=== PATIENT | male | born 1965 | race Caucasian/White ===

== ENCOUNTER 2016-11-08 08:11 | Inpatient (IN) | payer MEDICAID, OTHER ==
[2016-11-08 09:15] LABS: Hematocrit 43 % (42-52); Hemoglobin 14.7 g/dl (14.0-18.0); Mean Corpuscular HGB Conc 34 g/dl (31-36); Mean Corpuscular Hemoglobin 34 pg (27-31); Mean Corpuscular Volume 98 fL (80-94); Mean Platelet Volume 8 um3 (7.4-10.4); Red Cell Distribution Width 14 % (10.5-15)
[2016-11-08 09:31] LABS: ALT 12 U/L (7-52); AST 17 U/L (13-39); Albumin 3.8 g/dL (3.2-5.2); Alkaline Phosphatase 65 U/L (34-104); Anion Gap 2 mmol/L (2-11); CO2 Carbon Dioxide 29 mmol/L (22-32); Chloride 104 mmol/L (101-111); EGFR African American 124.9 (>60); EGFR Non-African American 97.1 (>60); Globulin 3.3 g/dL (2-4); Glucose 89 mg/dL (70-100); Sodium 135 mmol/L (133-145); Total Protein 7.1 g/dL (6.4-8.9)
[2016-11-08 09:48] LABS: Acetaminophen < 15 mcg/mL; Alcohol < 10 mg/dL (<10); Salicylate < 2.50 mg/dL (<30)
[2016-11-08 09:55] LABS: TSH (Thyroid Stimulating Horm) 0.98 mcIU/mL (0.34-5.60)
[2016-11-08 09:56] LABS: Blood Urea Nitrogen 16 mg/dL (6-24)
[2016-11-08 11:01] LABS: Urine Bacteria Absent (Absent); Urine Bilirubin Negative (Negative); Urine Glucose Negative (Negative); Urine Nitrite Negative (Negative)
[2016-11-08 11:15] LABS: Benzodiazepine Urine Screen None Detected (None Detect)
[2016-11-08] MEDS ORDERED: LORazepam TAB(*) 1 MG PO ONE (13:06)
--- NOTE | 2016-11-08 13:52 | ED ---
Aby Sawyer Rebecca, scribed for Denzel Diaz MD on 11/08/16 at 0825 . Psychiatric Complaint - HPI Summary HPI Summary: Pt is a 51 y/o M who presents to ED with depression and SIs. Has been experiencing depression for 1 year, s/p brother's . SIs began yesterday, he states "I don't want to live anymore." When asked, pt reports that nothing triggered his sx. Is not on any medication for depression. Has seen a psychiatrist once. - History Of Current Complaint Chief Complaint: EDMentalHealth Time Seen by Provider: 11/08/16 08:21 Hx Obtained From: Patient Onset/Duration: Lasting Days - SIs started yesterday, Still Present Character: Depressed Aggravating Factor(s): Nothing Alleviating Factor(s): Nothing Has Suicidal: Reports: Thoughts - Allergies/Home Medications Allergies/Adverse Reactions: Allergies Allergy/AdvReac Type Severity Reaction Status Date / Time No Known Allergies Allergy Verified 11/08/16 08:14 PMH/Surg Hx/FS Hx/Imm Hx Endocrine/Hematology History: Denies: Hx Diabetes, Hx Thyroid Disease Cardiovascular History: Reports: Hx Hypertension, Other Cardiovascular Problems/ Disorders - CP DUE TO BLOCKAGE. CARDIAC CATH DONE IN 03/13. AT THE TIME 40-50% BLOCKAGE Respiratory History: Reports: Hx Chronic Obstructive Pulmonary Disease (COPD) - emphazima Denies: Hx Asthma GI History: Denies: Hx Ulcer - Surgical History Surgery Procedure, Year, and Place: RIGHT LUNG NODULE REMOVED, CATHETERIZED CORONARY BLOCKAGE 2009 Infectious Disease History: Denies: Hx Hepatitis, Hx Human Immunodeficiency Virus (HIV), Traveled Outside the [place] in Last 30 Days - Family History Known Family History: Positive: Other - Cancer - Social History Alcohol Use: Occasionally Substance Use Type: Reports: None Hx Tobacco Use: Yes Smoking Status (MU): Heavy Every Day Tobacco Smoker Type: Cigarettes Amount Used/How Often: 1/2 ppd Have You Smoked in the Last Year: Yes Review of Systems Negative: Fever Positive: Depressed, Other - SIs All Other Systems Reviewed And Are Negative: Yes Physical Exam - Summary Physical Exam Summary: VITAL SIGNS: Reviewed. GENERAL: ~Patient is a well-developed and nourished male who is lying comfortable in the stretcher. ~Patient is not in any acute respiratory distress. HEAD AND FACE: No signs of trauma. ~No ecchymosis, hematomas or skull depressions. No sinus tenderness. EYES: PERRLA, EOMI x 2, No injected conjunctiva, no nystagmus. EARS: Hearing grossly intact. Ear canals and tympanic membranes are within normal limits. MOUTH: Oropharynx within normal limits. NECK: Supple, trachea is midline, no adenopathy, no JVD, no carotid bruit, no c- spine tenderness, neck with full ROM. CHEST: Symmetric, no tenderness at palpation LUNGS: Clear to auscultation bilaterally. No wheezing or crackles. CVS: Regular rate and rhythm, S1 and S2 present, no murmurs or gallops appreciated. ABDOMEN: Soft, non-tender. No signs of distention. No rebound no guarding, and no masses palpated. Bowel sounds are normal. EXTREMITIES: FROM in all major joints, no edema, no cyanosis or clubbing. NEURO: Alert and oriented x 3. No acute neurological deficits. Speech is normal and follows commands. SKIN: Dry and warm PSYCH: Depressed, quiet, and reports suicidal thoughts without a plan. No homicidal thoughts or plan. No signs of psychosis or pressure speech. No tangential speech. Triage Information Reviewed: Yes Vital Signs On Initial Exam: Initial Vitals Temp Pulse Resp BP Pulse Ox 97.3 F 71 16 118/83 99 11/08/16 08:14 11/08/16 08:14 11/08/16 08:14 11/08/16 08:14 11/08/16 08:14 Vital Signs Reviewed: Yes Diagnostics - Vital Signs Vital Signs Temp Pulse Resp BP Pulse Ox 11/08/16 08:14 97.3 F 71 16 118/83 99 - Laboratory Lab Results: Lab Results 11/08/16 11/08/16 11/08/16 Range/Units 09:00 09:00 10:39 WBC 9.0 (3.5-10.8) 10^3/ul RBC 4.40 (4.0-5.4) 10^6/ul Hgb 14.7 (14.0-18.0) g/dl Hct 43 (42-52) % MCV 98 H (80-94) fL MCH 34 H (27-31) pg MCHC 34 (31-36) g/dl RDW 14 (10.5-15) % Plt Count 214 (150-450) 10^3/ul MPV 8 (7.4-10.4) um3 Neut % (Auto) 78.5 (38-83) % Lymph % (Auto) 15.3 L (25-47) % Wilcox % (Auto) 4.5 (1-9) % Eos % (Auto) 0.5 (0-6) % Baso % (Auto) 1.2 (0-2) % Absolute Neuts (auto) 7.1 (1.5-7.7) 10^3/ul Absolute Lymphs (auto) 1.4 (1.0-4.8) 10^3/ul Absolute Monos (auto) 0.4 (0-0.8) 10^3/ul Absolute Eos (auto) 0 (0-0.6) 10^3/ul Absolute Basos (auto) 0.1 (0-0.2) 10^3/ul Absolute Nucleated RBC 0 10^3/ul Nucleated RBC % 0 Sodium 135 (133-145) mmol/L Potassium 4.0 (3.5-5.0) mmol/L Chloride 104 (101-111) mmol/L Carbon Dioxide 29 (22-32) mmol/L Anion Gap 2 (2-11) mmol/L BUN 16 (6-24) mg/dL Creatinine 0.84 (0.67-1.17) mg/dL Est GFR ( Amer) 124.9 (>60) Est GFR (Non-Af Amer) 97.1 (>60) BUN/Creatinine Ratio 19.0 (8-20) Glucose 89 (70-100) mg/dL Calcium 9.0 (8.6-10.3) mg/dL Total Bilirubin 0.50 (0.2-1.0) mg/dL AST 17 (13-39) U/L ALT 12 (7-52) U/L Alkaline Phosphatase 65 (34-104) U/L Total Protein 7.1 (6.4-8.9) g/dL Albumin 3.8 (3.2-5.2) g/dL Globulin 3.3 (2-4) g/dL Albumin/Globulin Ratio 1.2 (1-3) TSH 0.98 (0.34-5.60) mcIU/mL Urine Color Yellow Urine Appearance Clear Urine pH 5.0 (5-9) Ur Specific [place] 1.009 L (1.010-1.030) Urine Protein Negative (Negative) Urine Ketones Negative (Negative) Urine Blood Negative (Negative) Urine Nitrate Negative (Negative) Urine Bilirubin Negative (Negative) Urine Urobilinogen Negative (Negative) Ur Leukocyte Esterase 2+ H (Negative) Urine WBC (Auto) 2+(11-20/hpf) H (Absent) Urine RBC (Auto) Trace(0-2/hpf) (Absent) Ur Squamous Epith Cells Present H (Absent) Urine Bacteria Absent (Absent) Urine Glucose Negative (Negative) Salicylates < 2.50 (<30) mg/dL Urine Opiates Screen (None Detect) Acetaminophen < 15 mcg/mL Ur Barbiturates Screen (None Detect) Ur Phencyclidine Scrn (None Detect) Ur Amphetamines Screen (None Detect) U Benzodiazepines Scrn (None Detect) Urine Cocaine Screen (None Detect) U Cannabinoids Screen (None Detect) Serum Alcohol < 10 (<10) mg/dL 11/08/16 Range/Units 10:39 WBC (3.5-10.8) 10^3/ul RBC (4.0-5.4) 10^6/ul Hgb (14.0-18.0) g/dl Hct (42-52) % MCV (80-94) fL MCH (27-31) pg MCHC (31-36) g/dl RDW (10.5-15) % Plt Count (150-450) 10^3/ul MPV (7.4-10.4) um3 Neut % (Auto) (38-83) % Lymph % (Auto) (25-47) % Wilcox % (Auto) (1-9) % Eos % (Auto) (0-6) % Baso % (Auto) (0-2) % Absolute Neuts (auto) (1.5-7.7) 10^3/ul Absolute Lymphs (auto) (1.0-4.8) 10^3/ul Absolute Monos (auto) (0-0.8) 10^3/ul Absolute Eos (auto) (0-0.6) 10^3/ul Absolute Basos (auto) (0-0.2) 10^3/ul Absolute Nucleated RBC 10^3/ul Nucleated RBC % Sodium (133-145) mmol/L Potassium (3.5-5.0) mmol/L Chloride (101-111) mmol/L Carbon Dioxide (22-32) mmol/L Anion Gap (2-11) mmol/L BUN (6-24) mg/dL Creatinine (0.67-1.17) mg/dL Est GFR ( Amer) (>60) Est GFR (Non-Af Amer) (>60) BUN/Creatinine Ratio (8-20) Glucose (70-100) mg/dL Calcium (8.6-10.3) mg/dL Total Bilirubin (0.2-1.0) mg/dL AST (13-39) U/L ALT (7-52) U/L Alkaline Phosphatase (34-104) U/L Total Protein (6.4-8.9) g/dL Albumin (3.2-5.2) g/dL Globulin (2-4) g/dL Albumin/Globulin Ratio (1-3) TSH (0.34-5.60) mcIU/mL Urine Color Urine Appearance Urine pH (5-9) Ur Specific [place] (1.010-1.030) Urine Protein (Negative) Urine Ketones (Negative) Urine Blood (Negative) Urine Nitrate (Negative) Urine Bilirubin (Negative) Urine Urobilinogen (Negative) Ur Leukocyte Esterase (Negative) Urine WBC (Auto) (Absent) Urine RBC (Auto) (Absent) Ur Squamous Epith Cells (Absent) Urine Bacteria (Absent) Urine Glucose (Negative) Salicylates (<30) mg/dL Urine Opiates Screen None detected (None Detect) Acetaminophen mcg/mL Ur Barbiturates Screen None detected (None Detect) Ur Phencyclidine Scrn None detected (None Detect) Ur Amphetamines Screen None detected (None Detect) U Benzodiazepines Scrn None detected (None Detect) Urine Cocaine Screen None detected (None Detect) U Cannabinoids Screen None detected (None Detect) Serum Alcohol (<10) mg/dL Result Diagrams: 11/08/16 09:00 11/08/16 09:00 Lab Statement: Any lab studies that have been ordered have been reviewed, and results considered in the medical decision making process. Course/Dx - Course Assessment/Plan: Pt is a 51 y/o M who presents to ED with depression and SIs. Has been experiencing depression for 1 year, s/p brother's . SIs began yesterday, he states "I don't want to live anymore." When asked, pt reports that nothing triggered his sx. Is not on any medication for depression. Has seen a psychiatrist once. Blood work without any significant abnormalities. The pt was medically cleared for [facility]. He was awiating [facility]. Dr. Marinelli consulted for the patient. He diagnosed the pt with depressive disorder and decided to admit him to his services. - Differential Dx/Clinical Impression Differential Diagnosis/HQI/PQRI: Positive: Anxiety, Depression, Suicidal Ideation, Suicidal Gesture Provider Diagnosis: Depressive disorder Discharge - Discharge Plan Condition: Stable Disposition: ADMITTED TO [facility] Referrals: Charlie Flores MD [Primary Care Provider] - The documentation as recorded by the Ayb smart Rebecca accurately reflects the service I personally performed and the decisions made by me, Denzel Diaz MD.
[2016-11-08] MEDS ORDERED: Mouth Piece, Nicotine* 1 EACH CARTRIDGE INH SCH (16:50)
[2016-11-08] MEDS ORDERED: Nicotine GUM* 2 MG PO PRN (16:50)
[2016-11-08] MEDS ORDERED: Al Hydrox/Mg Hydrox/Simet LIQ* 30 ML UDC PO PRN (16:50)
[2016-11-08] MEDS ORDERED: Acetaminophen TAB* 325 MG PO PRN (16:50)
[2016-11-08] MEDS ORDERED: Nicotine Inhaler* 10 MG AMP INH PRN (16:50)
[2016-11-09] MEDS: Vitamin THERAPEUTIC TAB PO SCH (09:29)
--- NOTE | 2016-11-09 15:35 | HP ---
H&P (Free Text) History and Physical: HPI: ---- Patient is a 51yo male with PPHx significant for MDD who self presented to [facility], at the behest of his [facility] at [facility], after reporting worsening depressive symptoms and SI in the context of recently ending his relationship with his fiance and now being homeless. Patient also reported his brother in 01/2016by suicide. In the ED, patient stated, "I don't want to live anymore". With further questions of psychosocial stressors and triggers for his decline, patient was evasive with the ED provider. He reported he presenting to the ED only to be referred to an outpt therapist. He reported knowing referral from a hospital would have him in to be seen in weeks instead of months. Patient reports he did not desire admission and has submitted paperwork requesting discharge. On interview in the unit, patient continues to be evasive and patient minimizes his symptoms. After multiple questions on life stressors, patient finally admitted he and his ex had planned to be this Tuesday11/12/16. Patient reports he feels he is being used for his finances in the relationship. He had lived with his ex, but reports paying most of the expenses in the household. Patient reports his ex has untreated MH issues. He reports realizing his relationship was unhealthy as his became upset when patient took her car to work instead of riding his motorcycle in due to inclimate weather. He feels he was supportive of his ex, but received no support in return. Patient became tearful talking about his ex. Patient was also noted to have more depressed affect when discussing the of his brother in 01/2016 y suicide. Patient reports he had been living with him prior to his suicide. He reported finding his body. Patient is now homeless, but reports to this provider he "has people" in [place] who will take him in. Patient denies alcohol or illicit substances played a role in his decompensation / SI. He reports he has no plans to hurt himself. Patient reports he goes to work at [employer] daily and has had no reprimands at work. Patient is on no meds currently and declines recommendation to start an antidepressant. Patient denies hx of physical, emotional, or sexual abuse. Patient reports no symptoms of psychosis, nor were any elicited on this interview. Patient reports no current SI/HI or AH/VH. Past Psych Hx: Inpt - Patient reports hx of 2 prior admissions for dx- depression, last >20 years ago. One of 2 admission patient reports was at [facility]. Outpt - None currently, [facility]. Last seen in 04/2016 due to inability to pay. Psychotropic med hx - Patient can not recall the names of antidepressants he's taken in the past. Suicide attempt Hx / SIB Hx: -Patient reports hx of 1 suicide attempt. He reports in 2009 by means of OD, triggered by a breakup with a GF and her taking his child. -[facility] records indicate a 10/2010 suicide attempt by OD on HTN meds. Trauma Hx: Patient denies hx of physical, emotional, or sexual abuse. Substance Hx: -Patient denies abuse of alcohol and reports rare use of alcohol. -Patient denies use of illicit substances. Medical Hx: -CAD, s/p Cardiac catherization in 2009 -Hx of HTN Allergies: --------- NKDA Family Hx: Patient reports family hx of depression. Patient reports his brother committed suicide. Social Hx: --------- -Patient born and raised in [place], [place] -Raised by mom and dad -Patient is the youngest of 9 children -Patient reports being close with only one sibling, his brother who committed suicide in 01/2016. -Patient describes his childhood as "good" -Patient reports moving around multiple times as a child due to his father's work -Patient reports HLOE: 9th grade as he was "sick of moving" -Patient reports he has 6 kids -Patient reports he is paying child support on 4 children still to 3 different mothers -Patient is employed, at [employer]. -Close with only one of his children, Joshua 30yo -Patient has 4 grandchildren -Patient recently homeless after breaking up with his fiance recently Home Meds: Home Medications Medication Instructions Recorded Confirmed Type NK [No Home Medications Reported] 04/24/13 11/08/16 History Vitals: ------ 11/08/16 11/08/16 11/08/16 08:14 08:19 12:09 Temperature 97.3 F 97.3 F 97.6 F Pulse Rate 71 71 53 Respiratory 16 16 16 Rate Blood Pressure 118/83 118/83 122/87 (mmHg) O2 Sat by Pulse 99 98 98 Oximetry 11/08/16 11/09/16 11/09/16 15:35 07:43 10:13 Temperature 98.6 F 98.5 F Pulse Rate 65 66 Respiratory 16 16 16 Rate Blood Pressure 110/80 113/71 (mmHg) O2 Sat by Pulse 94 98 Oximetry LABS: ----- Laboratory Tests 11/08/16 11/08/16 11/08/16 09:00 09:00 10:39 WBC 9.0 RBC 4.40 Hgb 14.7 Hct 43 MCV 98 H MCH 34 H MCHC 34 RDW 14 Plt Count 214 MPV 8 Neut % (Auto) 78.5 Lymph % (Auto) 15.3 L [place] % (Auto) 4.5 Eos % (Auto) 0.5 Baso % (Auto) 1.2 Absolute Neuts (auto) 7.1 Absolute Lymphs (auto) 1.4 Absolute Monos (auto) 0.4 Absolute Eos (auto) 0 Absolute Basos (auto) 0.1 Absolute Nucleated RBC 0 Nucleated RBC % 0 Sodium 135 Potassium 4.0 Chloride 104 Carbon Dioxide 29 Anion Gap 2 BUN 16 Creatinine 0.84 Est GFR ( Amer) 124.9 Est GFR (Non-Af Amer) 97.1 BUN/Creatinine Ratio 19.0 Glucose 89 Calcium 9.0 Total Bilirubin 0.50 AST 17 ALT 12 Alkaline Phosphatase 65 Total Protein 7.1 Albumin 3.8 Globulin 3.3 Albumin/Globulin Ratio 1.2 TSH 0.98 Urine Color Yellow Urine Appearance Clear Urine pH 5.0 Ur Specific [place] 1.009 L Urine Protein Negative Urine Ketones Negative Urine Blood Negative Urine Nitrate Negative Urine Bilirubin Negative Urine Urobilinogen Negative Ur Leukocyte Esterase 2+ H Urine WBC (Auto) 2+(11-20/hpf) H Urine RBC (Auto) Trace(0-2/hpf) Ur Squamous Epith Cells Present H Urine Bacteria Absent Urine Glucose Negative Salicylates < 2.50 Urine Opiates Screen Acetaminophen < 15 Ur Barbiturates Screen Ur Phencyclidine Scrn Ur Amphetamines Screen U Benzodiazepines Scrn Urine Cocaine Screen U Cannabinoids Screen Serum Alcohol < 10 11/08/16 10:39 WBC RBC Hgb Hct MCV MCH MCHC RDW Plt Count MPV Neut % (Auto) Lymph % (Auto) [place] % (Auto) Eos % (Auto) Baso % (Auto) Absolute Neuts (auto) Absolute Lymphs (auto) Absolute Monos (auto) Absolute Eos (auto) Absolute Basos (auto) Absolute Nucleated RBC Nucleated RBC % Sodium Potassium Chloride Carbon Dioxide Anion Gap BUN Creatinine Est GFR ( Amer) Est GFR (Non-Af Amer) BUN/Creatinine Ratio Glucose Calcium Total Bilirubin AST ALT Alkaline Phosphatase Total Protein Albumin Globulin Albumin/Globulin Ratio TSH Urine Color Urine Appearance Urine pH Ur Specific [place] Urine Protein Urine Ketones Urine Blood Urine Nitrate Urine Bilirubin Urine Urobilinogen Ur Leukocyte Esterase Urine WBC (Auto) Urine RBC (Auto) Ur Squamous Epith Cells Urine Bacteria Urine Glucose Salicylates Urine Opiates Screen None detected Acetaminophen Ur Barbiturates Screen None detected Ur Phencyclidine Scrn None detected Ur Amphetamines Screen None detected U Benzodiazepines Scrn None detected Urine Cocaine Screen None detected U Cannabinoids Screen None detected Serum Alcohol PHYSICAL EXAM: GEN - in NAD, looks stated age HEENT - NC/AT, EOEMI, no lesions or discharge noted, conjunctivae clear NECK - supple, no JVD, no LAD, CARDIAC - S1/S2, no discernable murmurs ABD - (+) BS x 4 quad, non-tender EXT - no edema, no lesions MUSCULOSKEL - 5/5 muscle strength in all extremities SKIN - intact, no lesions NEURO - CN 2-12, steady gait MSE: ----- Appearance -thin build male, fair hygeine, in NAD Behavior - calm, cooperative Speech - RRR, prosody wnl Eye Contact - good Mood - "depressed" Affect - depressed, tearful at times TP - linear and GD TC - focused on relational issues with ex-fiance Perception - no signs of psychosis noted or reported Orientation - A&Ox3 Cognition - intact Insight - poor Judgement - poor SI / HI - present on admission, currently denies both ASSESSMENT: 1. MDD, R, S w/o PFs PLAN: ------ 1. Continue admission to [facility] for safety and symptom mx. 2. Patient declines recommendation to start an antidepressant. 3. Continue compiling collateral information from family, PCP, and most recent [facility] providers [facility]. 4. Patient to participate in milieu activities and groups.
[2016-11-10] MEDS: Vitamin THERAPEUTIC TAB PO SCH (08:48)
--- NOTE | 2016-11-10 11:54 | PN ---
MHU: Group Therapy Note - Service Type Service Type: [id number] Group Psychotherapy - Cognitive Behavioral Group Therapy ( CBT):Patient was attentive and participatory in CBT programming this morning, and remained in good behavioral control. Patient expressed positive insights regarding relevant treatment interventions and goals.
--- NOTE | 2016-11-10 17:07 | PN ---
Subjective - Subjective Service Type: [id number] Hosp care 15 min low complexity Subjective: Patient being visited by his fijackson and her daughter on my approach. Patient's affect noticeably brighter and patient joked/smiled multiple times during the interview. Patient reports he did not call his fiance. Fijackson reports she'd come to campus to give blood and noticed patient's motorcycle. Fiance called the unit and later came to the unit, finally given approval by patient to be brought back to visit. Patient and fiance recognize communication issues in their relationship. Patient reports his nature is to hash out any dispute right then and if his fiance will not he interprets this as not caring about the relationship. Fijackson reported she needs time to cool down and can not discuss issues in the heat of the moment as they come up. Both appreciated the other's perspective and were amenable to developing a compromise regarding setting up a time to hash out issues that fit both of them. Patient denied SI/HI and AH/VH. He reports sleep and appetite are wnl. Objective - Appearance Appearance: Thin Framed Dysmorphic Features: No Hygiene: Normal Grooming: Fairly Well Kept - Behavior Psychomotor Activities: Normal Exhibits Abnormal Movement: No - Attitude and Relatedness Attitude and Relatedness: Cooperative Eye Contact: Good - Speech Quality: Unpressured Latencies: Normal Quantity: Appropriate - Mood Patient's Decription of Mood: "Good" - Affect Observed Affect: Euphoric Affect Consistent with: Euthymia - Thought Process Patient's Thought Process: Coherent Thought Content: No Passive Wish, No Suicidal Planning, No Homicidal Ideation, No Paranoid Ideation - Sensorium Experiencing Hallucinations: No, Sensorium is Clear Type of Hallucinations: Visual: No, Auditory: No, Command: No - Level of Consciousness Level of Consciousness: Alert Orientation: Yes Intact, Yes Orientated to Time, Yes Orientated to Place, Yes Orientated to Person - Impulse Control Impulse Control: Intact - Insight and Judgement Insight and Judgement: Fair - Group Participation Particating in Group Activities: Yes - Medication Management Medication Management Adherence: Yes Assessment - Assessment Merits Inpatient Hospitalization: For Immediate Safety, For Stabilization Inpatient DSM-IV Dx: 1. MDD, R, S w/o PFs Plan - Plan Treatment Plan: Name: RODOLFO VALENZUELA SR Birthdate: 1965 [id number] 1. Continue admission to [facility] for safety and symptom mx. 2. Patient declines recommendation to start an antidepressant. 3. Collateral information obtained from Janna, who patient lives with. 4. Patient to participate in milieu activities and groups. Medications: Current Medications Acetaminophen (Tylenol Tab*) 650 mg PO Q4H PRN PRN Reason: PAIN or TEMP > 101 F Al Hydrox/Mg Hydrox/Simethicone (Maalox Plus*) 30 ml PO Q4H PRN PRN Reason: INDIGESTION Device (Nicotine Mouth Piece*) 1 each INH .[facility] Multivitamins (Theragran Tab*) 1 tab PO DAILY [facility] Last Admin: 11/10/16 08:48 Dose: Not Given Nicotine (Nicotine Inhaler*) 10 mg INH Q2H PRN PRN Reason: CRAVING Nicotine Polacrilex (Nicotine Gum*) 2 mg PO Q2H PRN PRN Reason: CRAVING - Discharge Plan Discharge Plan: Outpatient Follow Up
[2016-11-11] MEDS: Vitamin THERAPEUTIC TAB PO SCH (09:19)
--- NOTE | 2016-11-11 13:15 | PN ---
MHU: Group Therapy Note - Service Type Service Type: [id number] Group Psychotherapy - Cognitive Behavioral Group Therapy ( CBT):Patient was attentive and participatory in CBT programming this morning, and remained in good behavioral control. Patient expressed positive insights regarding relevant treatment interventions and goals.
--- NOTE | 2016-11-11 14:56 | PN ---
Subjective - Subjective Service Type: 78838 Hosp care 15 min low complexity Subjective: Patient continues to be full in affect, visible in the milieu, social, and participating in groups and milieu activities. Patient reported early in the day a desire to discharge Tuesday am as he wanted to surprise his fiance with getting in the park and wanted to have time to set it up. On interview, patient continued to have full affect but reported he'd spoken by phone with his fiance and they again argued over financial issues. Patient reports he feels they have a lot of issues and he now reports no desire to discharge to his fiances house as was the plan this morning. He reports he will go to his friend Radha's#[phone] home and has given this provider permission to call her for collateral. Patient reports his mood as "okay". He denies SI/HI and denies AH/VH. He again declines recommendation to initiate an antidepressant during this time of disequilibrium(break-up/homelessness/financial strain). Objective - Appearance Appearance: Thin Framed Dysmorphic Features: No Hygiene: Normal Grooming: Fairly Well Kept - Behavior Psychomotor Activities: Normal Exhibits Abnormal Movement: No - Attitude and Relatedness Attitude and Relatedness: Cooperative Eye Contact: Fair - Speech Quality: Unpressured Latencies: Normal Quantity: Appropriate - Mood Patient's Decription of Mood: "Okay" - Affect Observed Affect: Fair Affect Consistent with: Euthymia - Thought Process Patient's Thought Process: Coherent Thought Content: No Passive Wish, No Suicidal Planning, No Homicidal Ideation, No Paranoid Ideation - Sensorium Experiencing Hallucinations: No, Sensorium is Clear Type of Hallucinations: Visual: No, Auditory: No, Command: No - Level of Consciousness Level of Consciousness: Alert Orientation: Yes Intact, Yes Orientated to Time, Yes Orientated to Place, Yes Orientated to Person - Impulse Control Impulse Control: Intact - Insight and Judgement Insight and Judgement: Fair - Group Participation Particating in Group Activities: Yes - Medication Management Medication Management Adherence: Yes Assessment - Assessment Inpatient DSM-IV Dx: 1. MDD, R, S w/o PFs Plan - Plan Treatment Plan: Name: RODOLFO VALENZUELA Birthdate: 1965 [id number] 1. Continue admission to [facility] for safety and symptom mx. 2. Patient declines recommendation to start an antidepressant. 3. Collateral information obtained from Janna, who patient lives with. 4. Will obtain collateral from friend Radha#[phone] prior to patient discharging to her home. 5. Patient to participate in milieu activities and groups. Medications: Current Medications Acetaminophen (Tylenol Tab*) 650 mg PO Q4H PRN PRN Reason: PAIN or TEMP > 101 F Al Hydrox/Mg Hydrox/Simethicone (Maalox Plus*) 30 ml PO Q4H PRN PRN Reason: INDIGESTION Device (Nicotine Mouth Piece*) 1 each INH .CARTRIDGE LEAH Multivitamins (Theragran Tab*) 1 tab PO DAILY LEAH Last Admin: 11/11/16 09:19 Dose: Not Given Nicotine (Nicotine Inhaler*) 10 mg INH Q2H PRN PRN Reason: CRAVING Nicotine Polacrilex (Nicotine Gum*) 2 mg PO Q2H PRN PRN Reason: CRAVING - Discharge Plan Discharge Plan: Outpatient Follow Up Outpatient Program: [facility]
[2016-11-12 08:21] VITALS: BP 113/73
[2016-11-12] MEDS: Vitamin THERAPEUTIC TAB PO SCH (09:57)
--- NOTE | 2016-11-12 11:33 | PN ---
MHU: Group Therapy Note - Service Type Service Type: 86293 Group Psychotherapy - Cognitive Behavioral Group Therapy ( CBT):Patient was attentive and participatory in CBT programming this morning, and remained in good behavioral control. Patient expressed positive insights regarding relevant treatment interventions and goals.
--- NOTE | 2016-11-12 13:23 | DS ---
Subjective - Subjective Service Types: 61161 Hosp DC Day Mgmt simple under 30 min Treatment Course & Assessment Inpatient DSM-IV Dx: 1. MDD, R, S w/o PFs Discharge Planning - Discharge Planning Medications: Current Medications Acetaminophen (Tylenol Tab*) 650 mg PO Q4H PRN PRN Reason: PAIN or TEMP > 101 F Al Hydrox/Mg Hydrox/Simethicone (Maalox Plus*) 30 ml PO Q4H PRN PRN Reason: INDIGESTION Device (Nicotine Mouth Piece*) 1 each INH .CARTRIDGE LEAH Multivitamins (Theragran Tab*) 1 tab PO DAILY LEAH Last Admin: 11/12/16 09:57 Dose: Not Given Nicotine (Nicotine Inhaler*) 10 mg INH Q2H PRN PRN Reason: CRAVING Nicotine Polacrilex (Nicotine Gum*) 2 mg PO Q2H PRN PRN Reason: CRAVING Discharge Planning: Prescriptions provided for discharge [] Yes [] No Follow up care details as per social work arrangements. Patient response to discharge plan: [] eager for discharge [] agreeable with discharge plan [] ambivalent about discharge [] disagrees with discharge today
== END 2016-11-12 14:55 | disposition home or self-care (01) | DRG 885 ==
LOC: ED 08:11 → BSU 16:06
PROVIDERS: ADMIT Psychiatry & Neurology Psychiatry; ATTEND Psychiatry & Neurology Psychiatry
PROC: GZHZZZZ Group Psychotherapy (ICD-10-PCS; principal; 2016-11-10)
DX: F33.2 Major depressive disorder, recurrent severe without psychotic features (principal); R45.851 Suicidal ideations; I10 Essential (primary) hypertension; I25.10 Atherosclerotic heart disease of native coronary artery without angina pectoris; J44.9 Chronic obstructive pulmonary disease, unspecified; F17.210 Nicotine dependence, cigarettes, uncomplicated; Z59.0 Homelessness; Z91.5 Personal history of self-harm; Z81.8 Family history of other mental and behavioral disorders; Z80.9 Family history of malignant neoplasm, unspecified
CPT/HCPCS: 36415; 80053; 80307; 80320; 80329; 81003; 81015; 84443; 85025; 87086; 90853; 99222; 99231; 99238; 99406; A9270-GY; G0480

== ENCOUNTER 2017-04-25 20:32 | Emergency (ER) | payer MEDICAID ==
[2017-04-25] MEDS ORDERED: NS 0.9% 1000 ML* 1,000 ML IV ONE (21:14)
--- OUTSIDE RECORDS SUMMARY | 2017-04-25 21:36 | XMS REPORT ---
:1965 External Reference #:[id number] Author Organization [facility] 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 Charlie Flores MD Primary Care Physician Unavailable Payers Type Date Identification Numbers Payment Provider Subscriber Commercial Policy Number: [id number] Marcus Hood PayID: [id number] [address] [address] [place] [address] Commercial Effective: 2015 Policy Number: [facility] L[facility] [id number] Expires: 2017 PayID: [id number] [address] [place] [address] Problems Date Description Provider Status Onset: 04/23/2015 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 Milagros Wooten, Active art w unsp ang pctrs MSN, [employer] Onset: 04/23/2015 Essential hypertension Milagros Wooten, Active MSN, [employer] Onset: 10/09/2010 Depressive disorder Abbi Reilly M.D., FACC Onset: 09/24/2010 Disorder of lung Abbi Reilly M.D., FACC Onset: 09/24/2010 Nodular tuberculosis of lung Abbi Reilly M.D., FACC Onset: 09/24/2010 Coronary arteriosclerosis Abbi Reilly M.D., FACC Onset: 09/24/2010 Angina pectoris Abbi Reilly M.D., FACC Onset: 07/20/2010 Tobacco user Abbi Reilly M.D., FACC Onset: 07/20/2010 Pure hypercholesterolemia Abbi Reilly M.D., [facility] Onset: 07/20/2010 Benign essential hypertension Abbi Reilly M.D., [facility] Onset: 04/05/2017 Mixed hyperlipidemia GEORGINA Fletcher Active Family History Date Family Member(s) Problem(s) Comments : (age 73 Father due to Colon Years) Cancer Father due to Prostate () Cancer Father due to () Hypertension Siblings 8 brothers and sisters, 1 brother d/t spider cancer, 1 brother hx. cardiac stent, 1 brother enlarged heart and another brother hx CVA Social History Type Date Description Comments Lives With Alone Diet Patient follows no dietary restrictions Occupation Unemployed ADL's/IADL's Independent with all ADL's ADL's/IADL's Independent with all IADL's Cigarette Use Current Cigarette Smoker 1 1/2 Packs Daily x 27 pack years ETOH Use Rarely consumes alcohol Smoking Yes Daily Caffeine Consumes on average 4 cups of regular coffee per day Allergies, Adverse Reactions, Alerts Date Description Reaction Status Severity Comments 02/24/2010 NKDA active Medications Medication Date Status Form Strength Qnty SIG Indications Ordering Provider Aspirin Active Tablets DR 81mg 1 by I25.10 Chetan Osorio 018 corrine King M.D., [facility] day Atorvastatin Active Tablets 10mg 30tabs 1 by E78.0 Milagros Calcium 016 mouth Simonetta every Wooten, day MSN, [employer] Lisinopril Active Tablets 10mg 1 by Unknown 000 mouth every day Wellbutrin SR Active Tablets ER 100mg 1 by Unknown 000 12HR mouth once a day Aspir-[address] 81mg 90tabs 1 by I25.10 Milagros 016 mouth Simonetta every Wooten, day MSN, [employer] No Active Hx Unknown Medications 016 - 016 Aspirin Ec Hx Tablets DR 81mg 1 by I25.119 Milagros 016 mouth Simonetta every Wooten, day MSN, [employer] Ranexa Hx Tablets ER 500mg 60tabs 1 po 413.9 Milagros 011 12HR bid Roxie Wooten, MSN, [employer] Isosorbide Hx Tablets ER 30mg 30tabs 1 po qd 413.9 Milagros Mononitrate ER 011 24HR QUIRINO Lama, [employer] Nitrostat Hx Tablets 0.4mg 25tabs 1 tab 413.9 Milagros 011 Sub sl q 5 Roxie galicia x3 Sugar, chest MSN, [employer] pain Niaspan Hx Tablets ER 500mg 30tabs 1 po qd 272.0 Milagros 011 QUIRINO Lama, [employer] Carvedilol Hx Tablets 3.125mg 60tabs 1 po 414.01 Milagros 011 bid QUIRINO Lama, [employer] 401.1 Plavix 03/05/2010 Hx Tablets 75mg 30tabs 1 po qd 794.30 QUIRINO Hudson, [employer] 786.59 Wellbutrin SR 03/05/2010 Hx Tablets ER 150mg 60tabs 1 po bid 305.1 Milagros Faustin 12HR QUIRINO Wooten, [employer] Lisinopril 03/05/2010 Hx Tablets 10mg 30tabs 1 po qd 401.1 QUIRINO Hudson, [employer] 786.59 Simvastatin 03/05/2010 Hx Tablets 40mg 30tabs 1 po qd 272.0 QUIRINO Hudson, [employer] 786.59 Aspirin 03/05/2010 Hx Tablets 325mg 1 po qd 786.59 QUIRINO Hudson, [employer] Aspir-81 02/24/[address] 81mg 60tab 1 po qd Chetan Carballo M.D., [facility] Symbicort Hx Aerosol 160-4.5mcg 2 puff Unknown /Act bid Spiriva Hx Capsules 18mcg 1 po qd Unknown Handihaler Ventolin HFA Hx Aerosol 108(90Base prn Unknown ) mcg/ac Vital Signs Date Vital Result Comment 04/05/2017 BP Systolic Sitting Right Arm 130 mmHg BP Diastolic Sitting Right Arm 82 mmHg Heart Rate 80 /min Respiratory Rate 18 /min Height 70 inches 5'10" Weight 146.00 lb BMI (Body Mass Index) 20.9 kg/m2 BSA (Body Surface Area) 1.83 m2 [place] body weight in kilograms 75 05/12/2015 BP Systolic Sitting Left Arm 138 mmHg BP Diastolic Sitting Left Arm 88 mmHg Heart Rate 100 /min Respiratory Rate 16 /min Height 70 inches 5'10" Weight 147.00 lb BMI (Body Mass Index) 21.1 kg/m2 BSA (Body Surface Area) 1.83 m2 04/23/2015 BP Systolic Sitting Right Arm 130 mmHg BP Diastolic Sitting Right Arm 96 mmHg Heart Rate 88 /min Respiratory Rate 16 /min Height 70 inches 5'10" Weight 151.00 lb BMI (Body Mass Index) 21.7 kg/m2 BSA (Body Surface Area) 1.85 m2 10/09/2010 BP Systolic Sitting Left Arm 132 mmHg BP Diastolic Sitting Left Arm 86 mmHg Heart Rate 84 /min Respiratory Rate 16 /min Height 70 inches 5'10" Weight 139.00 lb BMI (Body Mass Index) 19.9 kg/m2 09/24/2010 BP Systolic Sitting Right Arm 130 mmHg BP Diastolic Sitting Right Arm 102 mmHg Heart Rate 76 /min Regular Respiratory Rate 16 /min Height 70 inches 5'10" Weight 139.00 lb BMI (Body Mass Index) 19.9 kg/m2 09/10/2010 BP Systolic Sitting Right Arm 98 mmHg BP Diastolic Sitting Right Arm 76 mmHg Heart Rate 88 /min Regular Respiratory Rate 12 /min Height 70 inches 5'10" Weight 140.00 lb BMI (Body Mass Index) 20.1 kg/m2 08/27/2010 BP Systolic Sitting Right Arm 132 mmHg BP Diastolic Sitting Right Arm 100 mmHg Heart Rate 80 /min regular Respiratory Rate 16 /min Height 70 inches 5'10" Weight 141.00 lb BMI (Body Mass Index) 20.2 kg/m2 07/20/2010 BP Systolic Sitting Right Arm 102 mmHg BP Diastolic Sitting Right Arm 92 mmHg Heart Rate 92 /min Regular Respiratory Rate 16 /min Height 70 inches 5'10" Weight 145.00 lb BMI (Body Mass Index) 20.8 kg/m2 04/20/2010 BP Systolic Sitting Left Arm 134 mmHg BP Diastolic Sitting Left Arm 100 mmHg Heart Rate 120 /min Regular Respiratory Rate 16 /min Weight 146.00 lb 03/05/2010 BP Systolic Sitting Left Arm 152 mmHg BP Diastolic Sitting Left Arm 110 mmHg Heart Rate 92 /min Regular Respiratory Rate 16 /min Weight 146.00 lb 02/24/2010 BP Systolic Sitting Right Arm 138 mmHg BP Diastolic Sitting Right Arm 102 mmHg Heart Rate 64 /min regular Respiratory Rate 16 /min Weight 147.00 lb Results Test Date Test Result H/L Range Note LDL Cholesterol Profile 07/20/2010 Cholesterol 128 mg/dL 120-200 Triglycerides 57 mg/dL 0-210 HDL Cholesterol 24 mg/dL Low 32-96 LDL-Cholesterol 93 mg/dL 62-185 Liver Function Tests 07/20/2010 Total Protein 8.3 g/dL High 6.3-8.0 Albumin 4.1 g/dL 3.5-5.0 Bilirubin,Total 0.4 mg/dL 0.2-1.2 Bilirubin,Direct 0.1 mg/dL 0.1-0.4 Bilirubin,Indirect 0.3 mg/dL 0.0-0.9 Sgot/Ast 13 U/L Low 16-40 SGPT/Alt 28 U/L Low 30-65 Alkaline Phosphatase 117 U/L 50-136 Globulin 4.2 gm/dL 1.9-4.3 Alb/Glob 1.0 CBC W/Automated Diff 03/05/2010 White Blood Count 12.4 K/uL High 3.4-10.5 Red Blood Count 5.03 M/uL 4.20-5.80 Hemoglobin 17.0 gm/dL 12.8-17.0 Hematocrit 50.0 % High 38.0-48.0 Mean Cell Volume 99.4 fl High 80.0-96.0 Mean Corpuscular HGB 33.8 pg High 27.0-33.0 Mean Corpuscular HGB Conc 34.0 g/dL 31.7-36.0 Platelet Count 279 K/uL 150-400 Red Cell Distri Width %CV 14.0 % 11.6-15.8 Mean Platelet Volume 10.2 fL 6.6-10.6 Neut% 77.6 % High 33.0-73.0 Lymph % 15.2 % Low 17.0-56.0 [place] % 6.8 % 0.0-10.0 Eo% 0.2 % 0.0-5.0 Bas% 0.2 % 0.1-1.0 Neut# 9.6 K/uL High 1.8-7.0 Lymph # 1.9 K/uL 1.2-4.0 [place] # 0.9 K/uL High 0.0-0.6 Eos # 0.0 K/uL 0.0-0.5 Baso # 0.0 K/uL Low 0.1-0.2 Red Cell Distri Width SD 50.0 fl 36-51 LDL Cholesterol Profile 03/05/2010 Cholesterol 145 mg/dL 120-200 Triglycerides 74 mg/dL 0-210 HDL Cholesterol 30 mg/dL Low 32-96 LDL-Cholesterol 100 mg/dL 62-185 Liver Function Tests 03/05/2010 Total Protein 8.4 g/dL High 6.3-8.0 Albumin 4.0 g/dL 3.5-5.0 Bilirubin,Total 0.5 mg/dL 0.2-1.2 Bilirubin,Direct 0.1 mg/dL 0.1-0.4 Bilirubin,Indirect 0.4 mg/dL 0.0-0.9 Sgot/Ast 15 U/L Low 16-40 SGPT/Alt 26 U/L Low 30-65 Alkaline Phosphatase 85 U/L 50-136 Globulin 4.4 gm/dL High 1.9-4.3 Alb/Glob 0.9 Procedures Date CPT Code Description Status 04/05/2017 29288 EKG-Tracing And Report Completed 05/07/2015 19520 Stress Test Interpre And Report Only Completed 05/07/2015 61935 Stress Test Physician Super Only Completed 05/07/2015 49900 Stress Test Physician Super Only Completed 05/07/2015 76466 Myocardial Imaging Tomographic Multiple Study At Rest Completed Or Stress 04/23/2015 35754 EKG-Tracing And Report Completed 04/23/2015 13966 EKG-Tracing And Report Completed 08/27/2010 29731 EKG-Tracing And Report Completed 08/27/2010 38341 EKG-Tracing And Report Completed 04/20/2010 18497 EKG-Tracing And Report Completed 03/03/2010 95519 Stress Test Interpre And Report Only Completed 03/03/2010 64554 Stress Test Physician Super Only Completed 03/03/2010 20620 Myocardial Imaging Tomographic Multiple Study At Rest Completed Or Stress 02/24/2010 73967 EKG-Tracing And Report Completed Encounters Type Date Location Provider CPT E/M Dx Office Visit 04/05/2017 11:20a Cardiology Office GEORGINA Fletcher 60139 R55 I25.10 I10 F17.210 E78.5 R09.89 Office Visit 05/12/2015 11:00a Cardiology Office Milagros Wooten, 81699 I25.10 MSN, [employer] I10 E78.0 F17.200 Office Visit 04/23/2015 2:20p Cardiology Office Milagros Wooten, 88545 I25.119 MSN, [employer]IST I10 E78.0 J44.9 Office Visit 03/03/2015 4:02p [place] [address] R07.9 Office Visit 10/09/2010 1:00p Cardiology Office Chetan Carballo, 76136 413.9 M.D., FACC 414.01 401.1 305.1 311 Office Visit 09/24/2010 1:00p Cardiology Office Chetan Carballo, 25777 413.9 M.D., FACC 414.01 401.1 272.0 305.1 518.89 Office Visit 09/10/2010 9:40a Cardiology Office Milagros Wooten, 04949 413.9 MSN, [employer]IST 414.01 401.1 272.0 305.1 Office Visit 08/27/2010 10:20a Cardiology Office Milagros Wooten, 76173 413.9 MSN, [employer]IST 414.01 401.1 272.0 305.1 Office Visit 07/20/2010 2:50p Cardiology Office Chetan Carballo, 25805 401.1 M.D., FACC 272.0 305.1 Office Visit 04/20/2010 2:20p Cardiology Office Milagros Wooten, 62936 414.01 MSN, [employer]IST 401.1 272.0 305.1 Office Visit 03/05/2010 9:00a Cardiology Office Chetan Carballo, 53900 794.30 M.D., FACC 786.59 401.1 272.0 305.1 Office Visit 02/24/2010 2:20p Cardiology Office Chetan Carballo, 02820 786.59 M.D., FACC 305.1 Plan of Care Future Appointment(s):10/04/2017 11:00 am - Soy Moreno MD at Cardiology [facility]6604/05/2017 - David Gutierrez, PAR55 Syncope and collapseNew Labs: Comprehensive Metabolic PanelNew Orders:EchocardiogramComments:He was encouraged to cut back on soda/coffee and drink more water. He was advised to make positionalchanges slowly. Will check an Echo to r/o structural abnormalities.I25.10 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onary artery w/o ang pctrsNew Medication:Aspirin 81 mgComments:He was advised to start low dose ASA. Continue with medical management.I10 Essential (primary) hypertensionComments: No changes.F17.210 Nicotine dependence, cigarettes, uncomplicatedComments: Counselled on smoking cessation. He does not want nicotine patches.E78.5 Hyperlipidemia, unspecifiedNew Labs:Comprehensive Metabolic PanelDirect LDL CholesterolComments:Due for lipid monitor.R09.89 Oth symptoms and signs involving the circ and resp systemsNew Orders:Ultrasound, Carotid ArteryComments :Will need a CUS.AllFollow up:6 month
[2017-04-25 21:56] LABS: EGFR Non-African American 63.5 (>60)
[2017-04-25 21:59] LABS: ABS Basophils 0.1 10^3/ul (0-0.2); ABS Eosinophils 0 10^3/ul (0-0.6); ABS Monocytes 0.9 10^3/ul (0-0.8); ABS Neutrophils 7.3 10^3/ul (1.5-7.7); ABS Nucleated RBC 0 10^3/ul; Eosinophil % 0.5 % (0-6); Hematocrit 47 % (42-52); Lymphocyte % 11.1 % (25-47); Mean Corpuscular HGB Conc 34 g/dl (31-36); Mean Corpuscular Hemoglobin 34 pg (27-31); Mean Corpuscular Volume 98 fL (80-94); Mean Platelet Volume 8 um3 (7.4-10.4); Nucleated Red Blood Cells % 0; Platelet Count 195 10^3/ul (150-450); Red Blood Count 4.76 10^6/ul (4.0-5.4); Red Cell Distribution Width 14 % (10.5-15); White Blood Count 9.3 10^3/ul (3.5-10.8)
[2017-04-25 22:01] LABS: INR 1.07 (0.77-1.02)
[2017-04-25 23:01] VITALS: BP 100/74
--- NOTE | 2017-04-25 23:13 | ED ---
Regina Sawyer Edward, scribed for Erik Harley MD on 04/25/17 at 2054 . Syncope/Near Syncope - HPI Summary HPI Summary: 52 y/o male BIBAdarsh s/p 2x syncopal episode today. Pt started getting dizzy while sitting in a chair. Then the pt leaned back and syncopized. Pt is unsure for how long. Pt was at a friend's house, unsure if it was witnessed. Pt has had previous episodes, last occurring 3 weeks ago and first occurring several years ago. Pt was seen by his PCP 3 weeks ago. PMHx HTN, HLD, depression. Currently the pt c/o nausea. - History Of Current Complaint Chief Complaint: EDSyncope Time Seen by Provider: 04/25/17 20:51 Hx Obtained From: Patient Onset/Duration: Sudden Onset Timing: Frequency Of Episodes - 2 Context: Unwitnessed Activity At Onset: At Rest - sitting Aggravating Factor(s): Nothing Alleviating Factor(s): Nothing Associated Signs And Symptoms: Other - nausea - Allergies/Home Medications Allergies/Adverse Reactions: Allergies Allergy/AdvReac Type Severity Reaction Status Date / Time No Known Allergies Allergy Verified 04/25/17 21:25 PMH/Surg Hx/FS Hx/Imm Hx Previously Healthy: No Endocrine/Hematology History: Denies: Hx Diabetes, Hx Thyroid Disease Cardiovascular History: Reports: Hx Hypertension, Other Cardiovascular Problems/ Disorders - CP DUE TO BLOCKAGE. CARDIAC CATH DONE IN 03/13. AT THE TIME 40-50% BLOCKAGE Respiratory History: Reports: Hx Chronic Obstructive Pulmonary Disease (COPD) - emphazima Denies: Hx Asthma GI History: Denies: Hx Ulcer Sensory History: Denies: Hx Contacts or Glasses, Hx Hearing Aid Opthamlomology History: Denies: Hx Contacts or Glasses Psychiatric History: Reports: Hx Depression, Hx Inpatient Treatment, Hx Suicide Attempt Denies: Hx Eating Disorder, Hx of Violent Episodes Against Others - Surgical History Surgery Procedure, Year, and Place: RIGHT LUNG NODULE REMOVED, CATHETERIZED CORONARY BLOCKAGE 2009 Infectious Disease History: No Infectious Disease History: Denies: Hx Hepatitis, Hx Human Immunodeficiency Virus (HIV), Traveled Outside the [place] in Last 30 Days - Family History Known Family History: Positive: Other - Cancer - Social History Alcohol Use: Occasionally Hx Substance Use: No Substance Use Type: Reports: None Hx Tobacco Use: Yes Smoking Status (MU): Heavy Every Day Tobacco Smoker Type: Cigarettes Amount Used/How Often: 1/2 ppd, pt has smoked tobacco products in the last 30 days Have You Smoked in the Last Year: Yes Review of Systems Constitutional: Negative Eyes: Negative ENT: Negative Cardiovascular: Negative Respiratory: Negative Positive: Nausea Genitourinary: Negative Musculoskeletal: Negative Skin: Negative Positive: Syncope Psychological: Normal All Other Systems Reviewed And Are Negative: Yes Physical Exam - Summary Physical Exam Summary: VITAL SIGNS: Reviewed. GENERAL: Patient is a well-developed and nourished male who is lying comfortable in the stretcher. Patient is not in any acute respiratory distress. HEAD AND FACE: No signs of trauma. No ecchymosis, hematomas or skull depressions. No sinus tenderness. EYES: PERRLA, EOMI x 2, No injected conjunctiva, no nystagmus. EARS: Hearing grossly intact. Ear canals and tympanic membranes are within normal limits. MOUTH: Oropharynx within normal limits. NECK: Supple, trachea is midline, no adenopathy, no JVD, no carotid bruit, no c- spine tenderness, neck with full ROM. CHEST: Symmetric, no tenderness at palpation LUNGS: Clear to auscultation bilaterally. No wheezing or crackles. CVS: Regular rate and rhythm, S1 and S2 present, no murmurs or gallops appreciated. ABDOMEN: Soft, non-tender. No signs of distention. No rebound no guarding, and no masses palpated. Bowel sounds are normal. EXTREMITIES: FROM in all major joints, no edema, no cyanosis or clubbing. NEURO: Alert and oriented x 3. No acute neurological deficits. Speech is normal and follows commands. SKIN: Dry and warm Triage Information Reviewed: Yes Vital Signs On Initial Exam: Initial Vitals Temp Pulse Resp BP Pulse Ox 97.3 F 84 16 110/90 96 04/25/17 20:44 04/25/17 20:44 04/25/17 20:44 04/25/17 20:44 04/25/17 20:44 Vital Signs Reviewed: Yes Diagnostics - Vital Signs Vital Signs Temp Pulse Resp BP Pulse Ox 04/25/17 20:44 97.3 F 84 16 110/90 96 - Laboratory Result Diagrams: 04/25/17 21:25 04/25/17 21:25 Lab Statement: Any lab studies that have been ordered have been reviewed, and results considered in the medical decision making process. - EKG 1 EKG Interpretation: SR @ 83 BPM. Normal axis, normal interval, no ischemic changes. Course/Dx Assessment/Plan: 52 y/o male BIBA s/p 2x syncopal episodes earlier today. EKG normal. In the ED the pt ambulated with no symptoms. Pt's blood pressure in the ED was on the low side; I discussed with the pt. The pt takes Lisinopril for his HTN. I advised him to reduce his dosage to 10 mg a day and to monitor his blood pressure. Pt will be d/c home with f/u with PCP. - Diagnoses Provider Diagnoses: Syncope Discharge - Discharge Plan Condition: Stable Disposition: HOME Patient Education Materials: Syncope (ED) Referrals: Charlie Flores MD [Primary Care Provider] - 4 Days (PLEASE F/U IN 3-5 DAYS) Additional Instructions: I ADVISE YOU TO REDUCE YOUR LISINOPRIL TO 10 MG A DAY. PLEASE MONITOR YOUR BLOOD PRESSURE PLEASE RETURN TO THE ED FOR RETURN OR WORSENING OF SYMPTOMS The documentation as recorded by the Regina smart Edward accurately reflects the service I personally performed and the decisions made by me, Erik Harley MD.
== END 2017-04-25 23:12 | disposition home or self-care (01) ==
LOC: ED 20:32
DX: R55 Syncope and collapse (principal); R42 Dizziness and giddiness; F17.210 Nicotine dependence, cigarettes, uncomplicated
CPT/HCPCS: 36415; 80053; 83735; 84443; 85025; 85610; 85730; 93005; 96360; 99283

== ENCOUNTER → 2017-04-28 14:55 | Emergency (ER) | payer MEDICAID ==
[2017-04-28 15:09] VITALS: BP 130/88
[2017-04-28 16:03] LABS: ABS Basophils 0.1 10^3/ul (0-0.2); ABS Eosinophils 0.1 10^3/ul (0-0.6); ABS Lymphocytes 2.2 10^3/ul (1.0-4.8); ABS Monocytes 0.7 10^3/ul (0-0.8); ABS Neutrophils 4.6 10^3/ul (1.5-7.7); ABS Nucleated RBC 0 10^3/ul; Eosinophil % 1.1 % (0-6); Hematocrit 47 % (42-52); Hemoglobin 16.1 g/dl (14.0-18.0); Lymphocyte % 28.3 % (25-47); Mean Corpuscular HGB Conc 35 g/dl (31-36); Mean Corpuscular Hemoglobin 34 pg (27-31); Mean Corpuscular Volume 98 fL (80-94); Mean Platelet Volume 8 um3 (7.4-10.4); Nucleated Red Blood Cells % 0.2; Platelet Count 169 10^3/ul (150-450); Red Blood Count 4.76 10^6/ul (4.0-5.4); Red Cell Distribution Width 14 % (10.5-15); White Blood Count 7.7 10^3/ul (3.5-10.8)
[2017-04-28 16:17] LABS: EGFR Non-African American 84.9 (>60)
== END | disposition home or self-care (01) ==
LOC: ED 14:55
DX: F32.9 Major depressive disorder, single episode, unspecified (principal); Z53.21 Procedure and treatment not carried out due to patient leaving prior to being seen by health care provider
CPT/HCPCS: 36415; 80053; 80320; 80329; 84443; 85025; G0480

== ENCOUNTER → 2018-07-15 05:28 | Emergency (ER) | payer OTHER ==
[2018-07-15 06:50] VITALS: BP 129/91
--- NOTE | 2018-07-15 07:24 | ED ---
Back Pain - HPI Summary HPI Summary: Patient is a 53-year-old male presenting to the ED with low back pain. 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 He states he has never injured the back before. Denies bladder or bowel dysfunction. Denies numbness or tingling. Denies any weakness. Patient remains ambulatory, however with pain. Pain is discretely located over the L4/L5 region radiating into the left side to the sciatic notch. There is no signs of trauma, ecchymosis or erythema. Patient is able to flex and extend at the hip joint and is able to rotate, however with pain. 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 Denies any fevers, sweats, chills. Denies any drug use. He states this is a Workmen's Comp case. - History of Current Complaint Chief Complaint: EDBackInjuryPain Stated Complaint: "I HURT MY BACK AT WORK" PER PT Time Seen by Provider: 07/15/18 05:42 Hx Obtained From: Patient Onset/Duration: Sudden Onset Onset/Duration: Started Hours Ago Timing: Constant Back Pain Location: Is Discrete @ - low back Severity Initially: Severe Severity Currently: Moderate Pain Intensity: 7 Pain Scale Used: 0-10 Numeric Character: Aching Aggravating Symptom(s): Bending Alleviating Symptom(s): Rest Associated Signs And Symptoms: Positive: Negative. Negative: Swelling, Redness , Bruising, Weakness, Numbness, Bladder Incontinence, Bowel Incontinence, Weight Loss, Pain with Weight Bearing - Risk Factors AAA Risk Factors: Negative TAD Risk Factors: Negative Cauda Equina Risk Factors: Negative Epidural Abscess Risk Factors: Negative - Allergies/Home Medications Allergies/Adverse Reactions: Allergies Allergy/AdvReac Type Severity Reaction Status Date / Time No Known Allergies Allergy Verified 04/25/17 21:25 PMH/Surg Hx/FS Hx/Imm Hx Previously Healthy: Yes Endocrine/Hematology History: Denies: Hx Diabetes, Hx Thyroid Disease Cardiovascular History: Reports: Hx Hypertension, Other Cardiovascular Problems/ Disorders - CP DUE TO BLOCKAGE. CARDIAC CATH DONE IN 03/13. AT THE TIME 40-50% BLOCKAGE Respiratory History: Reports: Hx Chronic Obstructive Pulmonary Disease (COPD) - emphazima Denies: Hx Asthma GI History: Denies: Hx Ulcer Sensory History: Denies: Hx Contacts or Glasses, Hx Hearing Aid Opthamlomology History: Denies: Hx Contacts or Glasses Psychiatric History: Reports: Hx Depression, Hx Inpatient Treatment, Hx Suicide Attempt Denies: Hx Eating Disorder, Hx of Violent Episodes Against Others - Surgical History Surgery Procedure, Year, and Place: RIGHT LUNG NODULE REMOVED, CATHETERIZED CORONARY BLOCKAGE 2009 - Immunization History Hx Pertussis Vaccination: No Immunizations Up to Date: Yes Infectious Disease History: No Infectious Disease History: Denies: Hx Hepatitis, Hx Human Immunodeficiency Virus (HIV), Traveled Outside the [place] in Last 30 Days - Family History Known Family History: Positive: Other - Cancer - Social History Occupation: Employed Full-time Lives: With Family Alcohol Use: Occasionally Hx Substance Use: No Substance Use Type: Reports: None Hx Tobacco Use: Yes Smoking Status (MU): Heavy Every Day Tobacco Smoker Type: Cigarettes Amount Used/How Often: 1/2 ppd, pt has smoked tobacco products in the last 30 days Have You Smoked in the Last Year: Yes Review of Systems Constitutional: Negative Negative: Fever, Chills, Fatigue, Skin Diaphoresis Negative: Palpitations, Chest Pain Negative: Shortness Of Breath, Cough Genitourinary: Negative Positive: no symptoms reported, see HPI Positive: Arthralgia - acute low back pain, Myalgia Negative: Rash, Bruising Neurological: Negative All Other Systems Reviewed And Are Negative: Yes Physical Exam Triage Information Reviewed: Yes Vital Signs On Initial Exam: Initial Vitals Temp Pulse Resp BP Pulse Ox 98.7 F 93 18 128/96 97 07/15/18 05:30 07/15/18 05:30 07/15/18 05:30 07/15/18 05:30 07/15/18 05:30 Vital Signs Reviewed: Yes Appearance: Positive: Well-Appearing, Well-Nourished Skin: Positive: Warm, Skin Color Reflects Adequate Perfusion Head/Face: Positive: Normal Head/Face Inspection Eyes: Positive: SANDRA, Conjunctiva Clear Neck: Positive: Supple, No Lymphadenopathy Respiratory/Lung Sounds: Positive: Clear to Auscultation, Breath Sounds Present Cardiovascular: Positive: RRR, Pulses are Symmetrical in both Upper and Lower Extremities Musculoskeletal: Positive: Pain @ - low back pain Neurological: Positive: Speech Normal Psychiatric: Positive: Affect/Mood Appropriate Diagnostics - Vital Signs Vital Signs Temp Pulse Resp BP Pulse Ox 07/15/18 06:49 98.9 F 78 16 129/91 97 07/15/18 05:30 98.7 F 93 18 128/96 97 - Laboratory Lab Statement: Any lab studies that have been ordered have been reviewed, and results considered in the medical decision making process. Back Pain Course/Dx - Course Course Of Treatment: During the patient's course treatment, he is evaluated for acute low back pain over L4/L5. Denies any weakness. Denies any bladder or bowel dysfunction. Patient is able to flex and extend the hips. He is also able to rotate about the hips. He endorses pain a 7/10, worse with ambulation and better with rest. Worse with sitting upright and better with lying flat. Straight leg raise positive. Pain on palpation over L4/L5, no step-off noted. According to up-to-date, this will be treated with conservative measures unless symptoms worsen, he develops bladder or bowel dysfunction or any weakness at that time we will obtained further imaging. He is given a note for work. Workman's comp paperwork is filled out. Prescriptions for prednisone and Flexeril. He will also use heat and gentle exercises stretches for relief. - Diagnoses Differential Diagnosis/HQI/PQRI: Positive: Strain, Sprain Provider Diagnoses: Low back pain Discharge - Sign-Out/Discharge Documenting (check all that apply): Patient Departure Patient Received Moderate/Deep Sedation with Procedure: No - Discharge Plan Condition: Stable Disposition: HOME Prescriptions: Cyclobenzaprine TAB* [Flexeril TAB*] 10 mg PO BID PRN #10 tab PRN Reason: Pain predniSONE TAB* [Deltasone TAB*] 50 mg PO DAILY #5 tab MDD 1 Patient Education Materials: Back Pain (ED), Lower Back Exercises (ED) Forms: *Work Release Referrals: Charlie Flores MD [Primary Care Provider] - Additional Instructions: Please follow up with your PCP in 3-5 days Off work x 3 days Prednisone once daily x 5 days - take this in the morning as this is a stimulant and may keep you up at night Flexeril twice daily for muscle contractions Ibuprofen 600mg three times daily x 5 days Moist heat to the area Gentle stretches - Billing Disposition and Condition Condition: STABLE Disposition: Home
== END | disposition home or self-care (01) ==
LOC: ED 05:28
DX: M54.5 Low back pain (principal); I10 Essential (primary) hypertension; Z98.61 Coronary angioplasty status; J44.9 Chronic obstructive pulmonary disease, unspecified; F32.9 Major depressive disorder, single episode, unspecified; F17.210 Nicotine dependence, cigarettes, uncomplicated
CPT/HCPCS: 99282

== ENCOUNTER 2018-09-19 04:41 | Emergency (ER) | payer SELFPAY ==
--- NOTE | 2018-09-19 05:20 | ED ---
Psychiatric Complaint - HPI Summary HPI Summary: Patient is a 53 y/o M presenting to ED with complaints of depression. He reports that his and he yesterday. Patient went to work at [employer] this morning, told co-workers about his personal issues, was advised to come to ED for evaluation. He notes Hx of depression, states that he was on bupropion years ago but cannot afford it anymore as he claims he does not have health insurance at present. He denies HI and SI. On triage, pain is denied. Home medications and allergies are reviewed. - History Of Current Complaint Chief Complaint: EDMentalHealth Hx Obtained From: Patient Onset/Duration: Lasting Days - and patient split last night, Still Present Timing: Constant Severity Currently: None Character: Depressed Aggravating Factor(s): Recent Stress Alleviating Factor(s): Nothing Associated Signs And Symptoms: Positive: Negative Has Suicidal: Denies: Thoughts Has Homicidal: Denies: Thoughts - Allergies/Home Medications Allergies/Adverse Reactions: Allergies Allergy/AdvReac Type Severity Reaction Status Date / Time No Known Allergies Allergy Verified 09/19/18 04:46 Home Medications: Home Medications NK [No Home Medications Reported] 09/19/18 [History Confirmed 09/19/18] PMH/Surg Hx/FS Hx/Imm Hx Endocrine/Hematology History: Denies: Hx Diabetes, Hx Thyroid Disease Cardiovascular History: Reports: Hx Hypertension, Other Cardiovascular Problems/ Disorders - CP DUE TO BLOCKAGE. CARDIAC CATH DONE IN 03/13. AT THE TIME 40-50% BLOCKAGE Respiratory History: Reports: Hx Chronic Obstructive Pulmonary Disease (COPD) - emphazima Denies: Hx Asthma GI History: Denies: Hx Ulcer Sensory History: Denies: Hx Contacts or Glasses, Hx Hearing Aid Opthamlomology History: Denies: Hx Contacts or Glasses Psychiatric History: Reports: Hx Depression, Hx Inpatient Treatment, Hx Suicide Attempt Denies: Hx Eating Disorder, Hx of Violent Episodes Against Others - Surgical History Surgery Procedure, Year, and Place: RIGHT LUNG NODULE REMOVED, CATHETERIZED CORONARY BLOCKAGE 2009 Infectious Disease History: No Infectious Disease History: Denies: Hx Hepatitis, Hx Human Immunodeficiency Virus (HIV), Traveled Outside the [place] in Last 30 Days - Family History Known Family History: Positive: Other - Cancer - Social History Alcohol Use: Occasionally Hx Substance Use: No Substance Use Type: Reports: None Hx Tobacco Use: Yes Smoking Status (MU): Heavy Every Day Tobacco Smoker Type: Cigarettes Amount Used/How Often: 1/2 ppd, pt has smoked tobacco products in the last 30 days Have You Smoked in the Last Year: Yes Review of Systems Negative: Fever Psychological: Other - NO SI/HI Positive: Depressed All Other Systems Reviewed And Are Negative: Yes Physical Exam - Summary Physical Exam Summary: VITAL SIGNS: Reviewed. GENERAL: Patient is a well-developed and nourished male who is lying comfortable in the stretcher. Patient is not in any acute respiratory distress. HEAD AND FACE: No signs of trauma. No ecchymosis, hematomas or skull depressions. No sinus tenderness. EYES: PERRLA, EOMI x 2, No injected conjunctiva, no nystagmus. EARS: Hearing grossly intact. Ear canals and tympanic membranes are within normal limits. MOUTH: Oropharynx within normal limits. NECK: Supple, trachea is midline, no adenopathy, no JVD, no carotid bruit, no c- spine tenderness, neck with full ROM CHEST: Symmetric, no tenderness at palpation LUNGS: Clear to auscultation bilaterally. No wheezing or crackles. CVS: Regular rate and rhythm, S1 and S2 present, no murmurs or gallops appreciated. ABDOMEN: Soft, non-tender. No signs of distention. No rebound no guarding, and no masses palpated. Bowel sounds are normal. EXTREMITIES: FROM in all major joints, no edema, no cyanosis or clubbing. NEURO: Alert and oriented x 3. No acute neurological deficits. Speech is normal and follows commands. SKIN: Dry and warm Triage Information Reviewed: Yes Vital Signs On Initial Exam: Initial Vitals Temp Pulse Resp BP Pulse Ox 97.4 F 78 16 136/103 98 09/19/18 04:43 09/19/18 04:43 09/19/18 04:43 09/19/18 04:43 09/19/18 04:43 Vital Signs Reviewed: Yes Diagnostics - Vital Signs Vital Signs Temp Pulse Resp BP Pulse Ox 09/19/18 04:43 97.4 F 78 16 136/103 98 - Laboratory Lab Statement: Any lab studies that have been ordered have been reviewed, and results considered in the medical decision making process. Re-Evaluation - Re-Evaluation First Eval Re-Evaluation Time: 05:04 Comment: Patient is medically cleared for MHE. Course/Dx - Course Course Of Treatment: Patient is a 53 y/o M presenting to ED with complaints of depression. He reports that his and he yesterday. Patient went to work at [employer] this morning, told co-workers about his personal issues, was advised to come to ED for evaluation. He notes Hx of depression, states that he was on bupropion years ago but cannot afford it anymore as he claims he does not have health insurance at present. He denies HI and SI. Physical exam is unremarkable. He was medically cleared for MHE. 2349 - worker reports that Dr. Gallego reviewed patient's case, patient will be discharged to home. Dr. Harley is agreeable with this. - Differential Dx/Clinical Impression Provider Diagnosis: Depression - Physician Notifications Discussed Care Of Patient With: Brandon Gallego Time Discussed With Above Provider: 23:50 Instructed by Provider To: Other - 2349 - worker reports that Dr. Gallego reviewed patient's case, patient will be discharged to home. Dr. Harley is agreeable with this. Discharge - Sign-Out/Discharge Documenting (check all that apply): Patient Departure - DISCHARGE Patient Received Moderate/Deep Sedation with Procedure: No - Discharge Plan Condition: Stable Disposition: HOME Patient Education Materials: Depression (ED) Referrals: Charlie Flores MD [Primary Care Provider] - - Attestation Statements Document Initiated by Scribe: Yes Documenting Scribe: JAYLEEN GORDON Provider For Whom Heidi is Documenting (Include Credential): BALAJI HARLEY MD Scribe Attestation: JAYLEEN Sawyer, scribed for BALAJI HARLEY MD on 09/19/18 at 0730. Status of Scribe Document: Ready
[2018-09-19 06:18] VITALS: BP 127/70
== END 2018-09-19 06:15 | disposition home or self-care (01) ==
LOC: ED 04:41
DX: F32.9 Major depressive disorder, single episode, unspecified (principal); Z98.61 Coronary angioplasty status; F17.210 Nicotine dependence, cigarettes, uncomplicated
CPT/HCPCS: 99283

== ENCOUNTER 2018-12-01 15:01 | Emergency (ER) | payer BC ==
[2018-12-01 16:32] LABS: ABS Eosinophils 0.1 10^3/ul (0-0.6); ABS Lymphocytes 1.8 10^3/ul (1.0-4.8); ABS Monocytes 0.7 10^3/ul (0-0.8); ABS Neutrophils 7.8 10^3/ul (1.5-7.7); Eosinophil % 1.2 %; Hematocrit 39 % (42-52); Hemoglobin 13.3 g/dL (14.0-18.0); Lymphocyte % 17.6 %; Mean Corpuscular HGB Conc 34 g/dL (31-36); Mean Corpuscular Hemoglobin 34 pg (27-31); Mean Corpuscular Volume 99 fL (80-94); Mean Platelet Volume 7.8 fL (7.4-10.4); Platelet Count 194 10^3/uL (150-450); Red Blood Count 3.97 10^6 /uL (4.18-5.48); Red Cell Distribution Width 14 % (10-15); White Blood Count 10.4 10^3/uL (3.5-10.8)
[2018-12-01 16:50] LABS: Albumin 3.7 g/dL (3.2-5.2); Albumin/Globulin Ratio 1.5 (1-3); BUN/Creatinine Ratio 20.5 (8-20); C Reactive Protein 2.43 mg/L (<8.01); Calcium 8.9 mg/dL (8.6-10.3); EGFR African American 118.2 (>60); EGFR Non-African American 97.7 (>60); Globulin 2.5 g/dL (2-4); Potassium 3.7 mmol/L (3.5-5.0); Total Bilirubin 0.3 mg/dL (0.2-1.0); Total Protein 6.2 g/dL (6.4-8.9)
[2018-12-01] MEDS ORDERED: Iohexol 300* (CONTRAST) 10 ML SDV IV ONE (17:00)
--- NOTE | 2018-12-01 17:30 | ED ---
Abdominal Pain/Male - HPI Summary HPI Summary: This patient is a 53-year-old male with history of COPD and heavy smoking history presenting to the ED with lower quadrant pain which was approximately 8/ 10 on onset about 2 hours ago and currently a 2/10. Denies any nausea or vomiting. Denies any recent history of constipation or diarrhea. Denies any travel. He states he has never had this before. He denies any abdominal surgeries in the past. Last bowel movement was this morning and was normal. He has been denying any urinary symptoms and back pain. He takes medication for COPD, but denies any other health conditions. He has had no CP or SOB. Symptoms are worse with sitting upright and better with lying flat. The abdominal pain is diffusely throughout the bilateral lower quadrants, somewhat worse to the left side. Denies any epigastric tenderness or right upper quadrant tenderness. Symptoms have not been made worse with by mouth intake. - History of Current Complaint Chief Complaint: EDAbdPain Stated Complaint: ABD PAIN PER PT Time Seen by Provider: 12/01/18 15:53 Hx Obtained From: Patient Onset/Duration: Sudden Onset Timing: Constant Severity Initially: Moderate Severity Currently: Moderate Pain Intensity: 10 Pain Scale Used: 0-10 Numeric Location: Other - bilateral lower quadrants Character: Cramping Aggravating Factor(s): Nothing Alleviating Factor(s): Nothing Associated Signs And Symptoms: Positive: Negative - Risk Factors Testicular Torsion: Negative Cardiac Risk Factors: Negative - Allergies/Home Medications Allergies/Adverse Reactions: Allergies Allergy/AdvReac Type Severity Reaction Status Date / Time No Known Allergies Allergy Verified 12/01/18 15:05 PMH/Surg Hx/FS Hx/Imm Hx Previously Healthy: Yes Endocrine/Hematology History: Denies: Hx Diabetes, Hx Thyroid Disease Cardiovascular History: Reports: Hx Hypertension, Other Cardiovascular Problems/ Disorders - CP DUE TO BLOCKAGE. CARDIAC CATH DONE IN 03/13. AT THE TIME 40-50% BLOCKAGE Respiratory History: Reports: Hx Chronic Obstructive Pulmonary Disease (COPD) - emphazima Denies: Hx Asthma GI History: Denies: Hx Ulcer History: Denies: Hx Renal Disease Sensory History: Denies: Hx Contacts or Glasses, Hx Hearing Aid Opthamlomology History: Denies: Hx Contacts or Glasses Psychiatric History: Reports: Hx Depression, Hx Inpatient Treatment, Hx Suicide Attempt Denies: Hx Eating Disorder, Hx of Violent Episodes Against Others - Surgical History Surgery Procedure, Year, and Place: RIGHT LUNG NODULE REMOVED, CATHETERIZED CORONARY BLOCKAGE 2010 Infectious Disease History: No Infectious Disease History: Denies: Hx Hepatitis, Hx Human Immunodeficiency Virus (HIV), Traveled Outside the [place] in Last 30 Days - Family History Known Family History: Positive: Other - Cancer - Social History Occupation: Employed Full-time Lives: Alone Alcohol Use: Occasionally Hx Substance Use: No Substance Use Type: Reports: None Hx Tobacco Use: Yes Smoking Status (MU): Heavy Every Day Tobacco Smoker Type: Cigarettes Amount Used/How Often: 1/2 ppd, pt has smoked tobacco products in the last 30 days Have You Smoked in the Last Year: Yes Review of Systems Constitutional: Negative Negative: Fever, Chills, Fatigue, Skin Diaphoresis Negative: Shortness Of Breath, Cough Positive: Abdominal Pain. Negative: Vomiting, Diarrhea, Nausea Genitourinary: Negative Positive: no symptoms reported, see HPI Negative: Arthralgia, Myalgia Neurological: Negative All Other Systems Reviewed And Are Negative: Yes Physical Exam Triage Information Reviewed: Yes Vital Signs On Initial Exam: Initial Vitals Temp Pulse Resp BP Pulse Ox 99.4 F 72 16 131/77 97 12/01/18 15:03 12/01/18 15:03 12/01/18 15:03 12/01/18 15:03 12/01/18 15:03 Vital Signs Reviewed: Yes Appearance: Positive: Well-Appearing, Well-Nourished Skin: Positive: Skin Color Reflects Adequate Perfusion Head/Face: Positive: Normal Head/Face Inspection Eyes: Positive: EOMI, Conjunctiva Clear Neck: Positive: Supple, No Lymphadenopathy Respiratory/Lung Sounds: Positive: Clear to Auscultation, Breath Sounds Present Cardiovascular: Positive: RRR, Pulses are Symmetrical in both Upper and Lower Extremities Abdomen Description: Positive: Soft, Other: - tenderness to the bilateral lower quadrants. Negative: CVA Tenderness (R), CVA Tenderness (L) Bowel Sounds: Positive: Present Musculoskeletal: Positive: Normal, Strength/ROM Intact Neurological: Positive: Speech Normal Psychiatric: Positive: Affect/Mood Appropriate AVPU Assessment: Alert Diagnostics - Vital Signs Vital Signs Temp Pulse Resp BP Pulse Ox 12/01/18 15:03 99.4 F 72 16 131/77 97 - Laboratory Lab Results: Lab Results 08/30/19 08/30/19 08/30/19 Range/Units 16:25 16:25 16:25 WBC 10.4 (3.5-10.8) 10^3/uL RBC 3.97 L (4.18-5.48) 10^6 /uL Hgb 13.3 L (14.0-18.0) g/dL Hct 39 L (42-52) % MCV 99 H (80-94) fL MCH 34 H (27-31) pg MCHC 34 (31-36) g/dL RDW 14 (10-15) % Plt Count 194 (150-450) 10^3/uL MPV 7.8 (7.4-10.4) fL Neut % (Auto) 74.4 % Lymph % (Auto) 17.6 % Davison % (Auto) 6.5 % Eos % (Auto) 1.2 % Baso % (Auto) 0.3 % Absolute Neuts (auto) 7.8 H (1.5-7.7) 10^3/ul Absolute Lymphs (auto) 1.8 (1.0-4.8) 10^3/ul Absolute Monos (auto) 0.7 (0-0.8) 10^3/ul Absolute Eos (auto) 0.1 (0-0.6) 10^3/ul Absolute Basos (auto) 0.0 (0-0.2) 10^3/ul Absolute Nucleated RBC 0.0 10^3/ul Nucleated RBC % 0.0 Sodium 139 (135-145) mmol/L Potassium 3.7 (3.5-5.0) mmol/L Chloride 107 (101-111) mmol/L Carbon Dioxide 29 (22-32) mmol/L Anion Gap 3 (2-11) mmol/L BUN 17 (6-24) mg/dL Creatinine 0.83 (0.67-1.17) mg/dL Est GFR ( Amer) 118.2 (>60) Est GFR (Non-Af Amer) 97.7 (>60) BUN/Creatinine Ratio 20.5 H (8-20) Glucose 90 (70-100) mg/dL Lactic Acid 0.8 (0.5-2.0) mmol/L Calcium 8.9 (8.6-10.3) mg/dL Magnesium 2.0 (1.9-2.7) mg/dL Total Bilirubin 0.30 (0.2-1.0) mg/dL AST 19 (13-39) U/L ALT 13 (7-52) U/L Alkaline Phosphatase 58 (34-104) U/L C-Reactive Protein 2.43 (<8.01) mg/L Total Protein 6.2 L (6.4-8.9) g/dL Albumin 3.7 (3.2-5.2) g/dL Globulin 2.5 (2-4) g/dL Albumin/Globulin Ratio 1.5 (1-3) Lipase 31 (11.0-82.0) U/L Result Diagrams: 12/01/18 16:25 12/01/18 16:25 Lab Statement: Any lab studies that have been ordered have been reviewed, and results considered in the medical decision making process. Abdominal Pain Male Course/Dx - Course Course Of Treatment: This patient is evaluated for bilateral lower quadrant tenderness. On physical examination, patient appears well. He is currently endorsing his pain at is 2/10. On physical examination, this is a well- appearing thin male. Lungs are CTA, RRR, abdominal tenderness to the bilateral lower quadrants, worse to the left side on deep palpation. Negative Braswell sign. No tenderness at McBurney's point on deep palpation. No tenderness to the suprapubic region. He denies tenderness to the epigastric region. Symptoms are made worse with patient sitting upright and better with lying flat. Full range of motion to the upper and lower extremities bilaterally. Patient is signed out to Kenroy Posada PA-C pending CT results. - Diagnoses Provider Diagnoses: Abdominal pain Discharge ED - Sign-Out/Discharge Documenting (check all that apply): Sign-Out Patient Signing out patient TO: Kenroy Posada Patient Received Moderate/Deep Sedation with Procedure: No - Discharge Plan Condition: Stable Disposition: HOME Patient Education Materials: Constipation (ED), Acute Abdominal Pain (ED) Referrals: Ortega Small MD [Medical Doctor] - Charlie Flores MD [Primary Care Provider] - Additional Instructions: Follow-up with GI Dr. Small if symptoms persist more than a week. Return to the ED for any worsening symptoms. - Billing Disposition and Condition Condition: STABLE Disposition: Home - Attestation Statements Provider Attestation: I was available for consult. This patient was seen by the ROSAURA. The patient was not presented to, seen by, or examined by me. Rafa Magallanes MD
[2018-12-01 18:00] VITALS: BP 124/82
--- NOTE | 2018-12-01 18:04 | PN ---
Progress Note - Progress Note Date of Service: 12/01/18 Note: Patient signed out to me by Sarah ERICKSON pending results of CT abdomen and pelvis. CT abdomen and pelvis positive for peripancreatic fluid posterior to the pancreas with a prominent pancreas. The possibility of pancreatitis should be considered. Stool present throughout the colon. Dependent changes in the lung bases are noted. Patient has normal lipase, history of pancreatitis. Patient's symptoms are all lower abdomen. Symptoms and labs and inconsistent with acute new onset pancreatitis. No history of chronic pancreatitis. Pain possibly related to stool burden. Vital signs within normal limits. Hemoglobin 13.3, labs otherwise unremarkable. Patient discharged home in stable condition with diagnosis of lower abdominal pain. Advised patient return to the ED for any new or worsening symptoms.
[2018-12-01] MEDS ORDERED: Acetaminophen TAB* 325 MG PO ONE (18:11)
[2018-12-01 18:20] LABS: Urine Appearance Clear; Urine Bacteria 1+ (Absent); Urine Bilirubin Negative (Negative); Urine Blood Negative (Negative); Urine Color Straw; Urine Glucose Negative (Negative); Urine Ketones Negative (Negative); Urine Nitrite Negative (Negative); Urine Protein Negative (Negative); Urine Red Blood Cell 1+(3-5/hpf) (Absent); Urine Specific Gravity 1.043 (1.010-1.030); Urine Squamous Epithelial Cell Present (Absent); Urine Urobilinogen Negative (Negative); Urine White Blood Cell 1+(6-10/hpf) (Absent)
== END 2018-12-01 18:14 | disposition home or self-care (01) ==
LOC: ED 15:01
DX: R10.9 Unspecified abdominal pain (principal); I10 Essential (primary) hypertension; J44.9 Chronic obstructive pulmonary disease, unspecified; F17.210 Nicotine dependence, cigarettes, uncomplicated; Z79.899 Other long term (current) drug therapy
CPT/HCPCS: 36415; 74177; 80053; 81003; 81015; 83605; 83690; 83735; 85025; 86140; 87086; 99282; Q9967